=== PATIENT | male | born 1985 | race Caucasian/White ===

== ENCOUNTER 2018-05-14 11:25 | Emergency (ER) | payer SELFPAY ==
[2018-05-14 12:03] LABS: ABSOLUTE LYMPHOCYTES (AUTO) 1.5 10^3/uL (0.5-4.7); ABSOLUTE MONOCYTES (AUTO) 0.7 10^3/uL (0.1-1.4); ABSOLUTE NEUT (AUTO) 8.7 10^3/uL (1.7-8.2); BASOPHILS % (AUTO) 0.3 % (0-2); EOSINOPHILS % (AUTO) 0.4 % (0-6); HEMATOCRIT 43.4 % (37.9-51.0); HEMOGLOBIN 14.6 g/dL (13.5-17.0); LYMPHOCYTES % (AUTO) 13.4 % (13-45); MEAN CORPUSCULAR HEMOGLOBIN 29.4 pg (27.0-33.4); MEAN CORPUSCULAR HGB CONC 33.6 g/dL (32.0-36.0); MEAN CORPUSCULAR VOLUME 88 fl (80-97); MONOCYTES % (AUTO) 6.6 % (3-13); PLATELET COUNT 265 10^3/uL (150-450); RED BLOOD COUNT 4.96 10^6/uL (4.35-5.55); RED CELL DISTRIBUTION WIDTH 16.2 % (11.5-14.0); SEGMENTED NEUTROPHILS % (AUTO) 79.3 % (42-78); TOTAL CELLS COUNTED % (AUTO) 100 %
[2018-05-14 12:08] LABS: APPEARANCE,URINE CLEAR; BILIRUBIN,URINE NEGATIVE (NEGATIVE); COLOR,URINE STRAW; GLUCOSE, URINE NEGATIVE (NEGATIVE); KETONES,URINE NEGATIVE (NEGATIVE); LEUKOCYTE ESTERASE,URINE NEGATIVE (NEGATIVE); NITRITE,URINE NEGATIVE (NEGATIVE); PROTEIN,URINE NEGATIVE (NEGATIVE); URINE SPECIFIC GRAVITY 1.004; UROBILINOGEN,URINE NEGATIVE mg/dL (<2.0)
[2018-05-14 12:24] LABS: URINE AMPHETAMINES SCREEN NEGATIVE; URINE BARBITURATES SCREEN NEGATIVE; URINE BENZODIAZEPINES SCREEN NEGATIVE; URINE COCAINE SCREEN NEGATIVE; URINE MARIJUANA (THC) SCREEN UNCONFIRMED POSITIVE; URINE METHADONE SCREEN NEGATIVE; URINE PHENCYCLIDINE SCREEN NEGATIVE
[2018-05-14 12:25] LABS: ALANINE AMINOTRANSFERASE 46 U/L (21-72); ALBUMIN 4.4 g/dL (3.5-5.0); ALKALINE PHOSPHATASE 93 U/L (38-126); ANION GAP 9 (5-19); ASPARTATE AMINO TRANSFERASE 16 U/L (17-59); BILIRUBIN,DIRECT 0.2 mg/dL (0.0-0.4); BILIRUBIN,TOTAL 0.5 mg/dL (0.2-1.3); BLOOD UREA NITROGEN 9 mg/dL (7-20); CALCIUM 9.9 mg/dL (8.4-10.2); CARBON DIOXIDE 26 mmol/L (22-30); CHLORIDE 107 mmol/L (98-107); GLUCOSE 124 mg/dL (75-110); POTASSIUM 4.3 mmol/L (3.6-5.0); SODIUM 142.3 mmol/L (137-145); TOTAL PROTEIN 7.3 g/dL (6.3-8.2)
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
[2018-05-14 12:32] LABS: ACETAMINOPHEN < 10 ug/mL (10-30); ALCOHOL < 10 mg/dL (NONE DETECTED); SALICYLATE < 1.0 mg/dL (2.0-20.0)
--- NOTE | 2018-05-14 14:32 | EKG REPORT ---
SEVERITY:- NORMAL ECG - SINUS RHYTHM : Confirmed by: Flaquita German MD 14-May-2018 14:31:02
[2018-05-14] MEDS ORDERED: FAMOTIDINE 20 MG TABLET PO ONE (18:04)
[2018-05-14] MEDS ORDERED: NICOTINE 21 MG/24 HR PATCH.TD24 TD ONE (18:08)
[2018-05-14] MEDS ORDERED: SUCRALFATE 1 GM TABLET PO SCH (18:15)
[2018-05-14] MEDS ORDERED: SUCRALFATE 1 GM TABLET PO ONE (18:15)
[2018-05-14] MEDS ORDERED: LITHIUM CARBONATE 300 MG CAPSULE PO SCH (18:15)
[2018-05-14] MEDS ORDERED: FAMOTIDINE 20 MG TABLET PO SCH (18:15)
[2018-05-14] MEDS ORDERED: PALIPERIDONE 6 MG TAB.ER.24 PO SCH (18:15)
[2018-05-14 18:36] LABS: LITHIUM < 0.2 mEq/L (0.6-1.2)
[2018-05-14] MEDS ORDERED: PALIPERIDONE 6 MG TAB.ER.24 PO ONE (18:45)
[2018-05-14] MEDS: GABAPENTIN 300 MG CAPSULE PO SCH (19:46)
[2018-05-14] MEDS: LITHIUM CARBONATE 300 MG CAPSULE PO SCH (19:47)
[2018-05-14] MEDS: FAMOTIDINE 20 MG TABLET PO SCH (19:47)
[2018-05-15] MEDS: SUCRALFATE 1 GM TABLET PO SCH ×4 (00:32→17:19)
[2018-05-15] MEDS: HYDROXYZINE HCL 10 MG TABLET PO PRN ×2 (01:32→14:47)
[2018-05-15] MEDS: PALIPERIDONE 6 MG TAB.ER.24 PO SCH (07:41)
[2018-05-15] MEDS: GABAPENTIN 300 MG CAPSULE PO SCH ×3 (09:16→17:18)
[2018-05-15] MEDS: LITHIUM CARBONATE 300 MG CAPSULE PO SCH ×2 (09:17→17:19)
[2018-05-15] MEDS: FAMOTIDINE 20 MG TABLET PO SCH ×2 (09:17→17:19)
--- NOTE | 2018-05-15 12:39 | ER Document Report ---
Doctor's Note Notes: 05/15/18 12:37 Rounds: Chart reviewed and patient interviewed. Patient being evaluated for schizophrenia. Recently hospitalized. Not on current medications. [place] level subtherapeutic. Vital signs are all essentially normal. Lab studies were normal with exception of very minimal elevation of the white cell count. No clinical significance. Patient makes perfectly good sense in conversation and remember seeing me in the past. Patient appears to be medically stable for transfer or discharge. Annalee Duran MD
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
[2018-05-16] MEDS: SUCRALFATE 1 GM TABLET PO SCH ×4 (00:15→16:05)
[2018-05-16] MEDS ORDERED: NICOTINE 21 MG/24 HR PATCH.TD24 TD ONE (03:53)
[2018-05-16] MEDS: HYDROXYZINE HCL 10 MG TABLET PO PRN ×2 (04:01→14:12)
[2018-05-16] MEDS: PALIPERIDONE 6 MG TAB.ER.24 PO SCH (08:46)
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
[2018-05-16] MEDS: LITHIUM CARBONATE 300 MG CAPSULE PO SCH (09:13)
[2018-05-16] MEDS: GABAPENTIN 300 MG CAPSULE PO SCH ×3 (09:13→17:23)
[2018-05-16] MEDS: FAMOTIDINE 20 MG TABLET PO SCH ×2 (09:13→17:23)
--- NOTE | 2018-05-16 09:50 | ER Document Report ---
Doctor's Note Notes: 05/16/18 09:48 Rounds: Chart reviewed and patient interviewed. Patient is being treated for psychotic behavior off medications. He is having his lithium medication dose increased. His vital signs have been normal except he had one heart rate recorded of 116. At this time, it is 95. No new lab studies. Most recent lithium level was 0.3 at 1250 yesterday afternoon. Patient is complaining of eye pain secondary to an old injury that required eye surgery. He says that he has been told that the pain is secondary to a retained suture in that eye and that there is no surgical treatment for same. He has been on medications to control his use of narcotics and currently he is prescribed naltrexone, but we do not have that here in this hospital. Patient says ibuprofen does not work for his pain and he is allergic to Tylenol, it causes him to have a headache. Patient appears to be medically stable for transfer or discharge. Annalee Duran MD
[2018-05-16] MEDS ORDERED: LITHIUM CARBONATE 300 MG CAPSULE PO SCH (18:00)
[2018-05-17] MEDS: SUCRALFATE 1 GM TABLET PO SCH ×2 (01:27→10:04)
[2018-05-17] MEDS: HYDROXYZINE HCL 10 MG TABLET PO PRN (01:28)
[2018-05-17] MEDS ORDERED: LITHIUM CARBONATE 300 MG CAPSULE PO SCH (08:00)
--- NOTE | 2018-05-17 09:55 | ER Document Report ---
Doctor's Note Notes: 05/17/18 09:53 Rounds: Chart reviewed and patient interviewed. Patient is here for schizophrenia. Patient's lithium was checked and was found to be sub- therapeutic. His lithium dose was increased. On evaluation today, patient's vital signs are stable. Patient seems to answer questions appropriately. Has no complaints or request. Patient denies any suicidal, homicidal ideations. He denies any visual or auditory hallucinations. [place] level to be rechecked. We will discharge him with a prescription for lithium 300 mg nightly. This will be in addition to his previous lithium prescription. Plan of care discussed with the patient. He is agreeable with obtaining the medication and taking it as directed. Patient appears to be medically stable discharge.
[2018-05-17] MEDS: FAMOTIDINE 20 MG TABLET PO SCH (10:04)
[2018-05-17] MEDS: PALIPERIDONE 6 MG TAB.ER.24 PO SCH (10:04)
[2018-05-17] MEDS: GABAPENTIN 300 MG CAPSULE PO SCH (10:04)
[2018-05-17 11:36] VITALS: BP 139/88
--- NOTE | 2018-05-17 12:27 | PSYCHOLOGICAL NOTE ---
Psych Note - Psych Note Psych Note: Reason for Consult: IVC Clinician notes; this patient has multiple charts [id number], [id number] and this chart [id number] Patient's last name Geoffrey 32-year-old male who presents to the emergency department today on IVC paperwork. IVC paperwork states "respondent is displaying aggressive behavior." Check-in conducted with patient Patient is calm and cooperative. He is been redirectable since increase of lithium. He reports that he plans to go straight to [facility] upon discharge to ensure he receives continued therapeutic care. Medication recommendations per [facility]'s contracted psychiatrist Dr. Martita ZHENG are as follows Continue current medications previously started however increase lithium to 600 mg nightly and 300 mg every morning Diagnosis 296.8 (F31.9)Unspecified Bipolar Disorder by history 304.00 (F11.20) Opioid Use Disorder, Severe, per history Impression\\plan: Patient is recommended for rescind of IVC and is cleared from acute psychiatric services. Patient has been calm, cooperative and redirectable. Patient was discharged from [facility] 6 days ago and is now been at [facility] for 3 days. Patient was unable to get his medications after discharge from [facility] because he had not gotten paid yet. 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 Patient demonstrates forward thinking with setting up outpatient mental health services with [facility]. Patient is not demonstrating any behaviors indicating responding to internal stimuli. Patient denies suicidal and homicidal ideation. He no longer meets IVC criteria per CT GS 122C. Dr. Starks was consulted on the care and management this patient; attending physician is agreement with recommendations and disposition.
== END 2018-05-17 11:35 | disposition home or self-care (01) ==
LOC: ER 11:25
DX: F25.0 Schizoaffective disorder, bipolar type (principal); H57.10 Ocular pain, unspecified eye; S05.90XS Unspecified injury of unspecified eye and orbit, sequela; X58.XXXS Exposure to other specified factors, sequela; Z79.899 Other long term (current) drug therapy; Z88.6 Allergy status to analgesic agent
CPT/HCPCS: 93005; 99285; 36415; 80307 ×4; 80178; 85025; 80053; 81001; 93010; J3490 ×8

== ENCOUNTER 2019-08-31 20:02 | Emergency (ER) | payer SELFPAY ==
[2019-08-31 20:37] LABS: ABSOLUTE BASOPHILS # (AUTO) 0.1 10^3/uL (0.0-0.2); ABSOLUTE EOSINOPHILS # (AUTO) 0.4 10^3/uL (0.0-0.6); ABSOLUTE LYMPHOCYTES (AUTO) 2.4 10^3/uL (0.5-4.7); ABSOLUTE MONOCYTES (AUTO) 1.2 10^3/uL (0.1-1.4); ABSOLUTE NEUT (AUTO) 8.4 10^3/uL (1.7-8.2); BASOPHILS % (AUTO) 0.5 % (0-2); EOSINOPHILS % (AUTO) 2.9 % (0-6); HEMATOCRIT 45.1 % (37.9-51.0); LYMPHOCYTES % (AUTO) 19.6 % (13-45); MEAN CORPUSCULAR HEMOGLOBIN 29.4 pg (27.0-33.4); MEAN CORPUSCULAR HGB CONC 33.2 g/dL (32.0-36.0); MEAN CORPUSCULAR VOLUME 89 fl (80-97); MONOCYTES % (AUTO) 9.7 % (3-13); PLATELET COUNT 286 10^3/uL (150-450); RED BLOOD COUNT 5.09 10^6/uL (4.35-5.55); RED CELL DISTRIBUTION WIDTH 15.9 % (11.5-14.0); SEGMENTED NEUTROPHILS % (AUTO) 67.3 % (42-78); TOTAL CELLS COUNTED % (AUTO) 100 %; WHITE BLOOD COUNT 12.5 10^3/uL (4.0-10.5)
--- NOTE | 2019-08-31 20:56 | EKG REPORT ---
SEVERITY:- ABNORMAL ECG - SINUS TACHYCARDIA ST ELEVATION SUGGESTS PERICARDITIS : Confirmed by: Sarthak Castelan 31-Aug-2019 20:55:27
[2019-08-31] MEDS ORDERED: HALOPERIDOL 5 MG TABLET PO ONE (21:11)
[2019-08-31] MEDS ORDERED: HYDROXYZINE PAMOATE 50 MG CAPSULE PO ONE (21:12)
[2019-08-31 21:13] LABS: APPEARANCE,URINE CLEAR; BILIRUBIN,URINE NEGATIVE (NEGATIVE); COLOR,URINE YELLOW; GLUCOSE, URINE NEGATIVE (NEGATIVE); KETONES,URINE NEGATIVE (NEGATIVE); LEUKOCYTE ESTERASE,URINE NEGATIVE (NEGATIVE); NITRITE,URINE NEGATIVE (NEGATIVE); PROTEIN,URINE NEGATIVE (NEGATIVE); URINE SPECIFIC GRAVITY 1.019; UROBILINOGEN,URINE NEGATIVE mg/dL (<2.0)
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
[2019-08-31 21:26] LABS: URINE AMPHETAMINES SCREEN NEGATIVE; URINE BARBITURATES SCREEN NEGATIVE; URINE BENZODIAZEPINES SCREEN NEGATIVE; URINE COCAINE SCREEN NEGATIVE; URINE METHADONE SCREEN NEGATIVE; URINE PHENCYCLIDINE SCREEN NEGATIVE
[2019-08-31 21:26] LABS: ALBUMIN 4.2 g/dL (3.5-5.0); ALKALINE PHOSPHATASE 198 U/L (38-126); ANION GAP 8 (5-19); ASPARTATE AMINO TRANSFERASE 468 U/L (17-59); BILIRUBIN,DIRECT 0.3 mg/dL (0.0-0.4); BILIRUBIN,TOTAL 0.6 mg/dL (0.2-1.3); BLOOD UREA NITROGEN 29 mg/dL (7-20); CALCIUM 9.8 mg/dL (8.4-10.2); CARBON DIOXIDE 28 mmol/L (22-30); CHLORIDE 101 mmol/L (98-107); GLUCOSE 133 mg/dL (75-110); POTASSIUM 4.4 mmol/L (3.6-5.0); TOTAL PROTEIN 7.2 g/dL (6.3-8.2)
[2019-08-31 21:28] LABS: URINE MARIJUANA (THC) SCREEN UNCONFIRMED POSITIVE
[2019-08-31 21:49] LABS: ACETAMINOPHEN < 10 ug/mL (10-30); ALCOHOL < 10 mg/dL (NONE DETECTED); SALICYLATE < 1.0 mg/dL (2.0-20.0)
[2019-08-31] MEDS ORDERED: DIPHENHYDRAMINE HCL 50 MG/ML VIAL IM ONE (21:51)
[2019-08-31] MEDS ORDERED: HALOPERIDOL LACTATE INJ 5 MG/1 ML VIAL IM ONE (21:51)
[2019-08-31] MEDS ORDERED: LORAZEPAM INJ 2 MG/1 ML VIAL IM ONE (21:51)
[2019-08-31] MEDS ORDERED: HALOPERIDOL LACTATE INJ 5 MG/1 ML VIAL ONE (21:52)
[2019-08-31] MEDS ORDERED: HYDROXYZINE HCL INJ 50 MG/1 ML VIAL ONE (21:52)
--- NOTE | 2019-09-01 09:51 | RADIOLOGY REPORT (SQ) ---
EXAM DESCRIPTION: U/S ABDOMEN COMPLETE W/DOPPLER COMPLETED DATE/TIME: 09/01/2019 9:36 am REASON FOR STUDY: significantly elevated LFTs COMPARISON: None. TECHNIQUE: Dynamic and static grayscale images acquired of the abdomen and recorded on PACS. Additio nal selected color Doppler and spectral images recorded. Note: Study does not meet criteria for complete doppler/duplex scan LIMITATIONS: None. FINDINGS: PANCREAS: No masses. Visualized pancreatic duct normal caliber. LIVER: No masses. Echotexture normal. LIVER VASCULATURE: Normal directional flow of the main portal vein and hepatic veins. GALLBLADDER: No stones. Normal wall thickness. No pericholecystic fluid. ULTRASOUND-DETECTED HAWK'S SIGN: Negative. INTRAHEPATIC DUCTS AND COMMON DUCT: CBD and intrahepatic ducts normal caliber. No filling defects. INFERIOR VENA CAVA: Normal flow. AORTA: No aneurysm. RIGHT KIDNEY:Normal size. Normal echogenicity. No solid or suspicious masses. No hydronephrosis. No c alcifications. LEFT KIDNEY: Normal size. Normal echogenicity. No solid or suspicious masses. No hydronephrosis. No calcifications. SPLEEN: Normal size. No solid masses. PERITONEAL AND PLEURAL SPACES: No ascites or effusions. OTHER: No other significant finding. IMPRESSION: NORMAL ABDOMINAL ULTRASOUND. TECHNICAL DOCUMENTATION: JOB ID: [id number] [employer]- All Rights Reserved Reading location - IP/workstation name: [email or web address]
--- NOTE | 2019-09-01 16:00 | PSYCHOLOGICAL NOTE ---
Psych Note - Psych Note Date seen by psych provider: 09/01/19 Time seen by psych provider: 09:55 - 1st attempt Psych Note: Reason for Consult: IVC Patient is a 33-year-old male with a history of schizophrenia that comes to the emergency department for chief complaint of abnormal behavior and dangerous behavior. Patient presented to [facility] ED via [facility] under IVC petitioned by the patient's mother. Patient reports that his house is normally kept very clean however is adamant that he is not been the one to make messes stating that the "Supai eye" in his ceiling records everything and that he refuses to watch more than 2 minutes of past recordings because he knows it is not him making the masses so just the leads it. He reports frustration that everyone else in the house makes messes so he stopped cleaning up after them. He continued to report that his mother has many books and has a bachelors however he has been reading them and been doing research. Patient is asked about missing window in which he reports that his mother took the keys so he had to remove the window so he could get into the house. He reports that it is easily put back in. When asked about why he was hitting the mailbox he states that he was hitting a mailbox so he did not hit his brother because he was angry at his brother. He then states that his brother smells "like pee." Patient reports he has been working a lot and denies shooting up anything in 4 months. He states he has not used Suboxone or methadone in 6 months and feels that his family has never seen him sober so "are freaked out." He reports that his mind is never been clear and "open to different thoughts." Patient then stated that he thought about throwing yogurt to the wall when asked why he stated that it is because his mother is "yeasty." Patient states that anytime she is in the family home he walks in and it smells like "bread." Impression/Plan: Patient is recommended for continued IVC for mental health observation. Patient is able to engage organized and linear conversation then has bouts of illogical comments that are bizarre and demonstrates flight of thought. There is concern the patient may be under the influence of kratom and having psychotic episodes from his kratom use. Patient admits to using kratom. Patient will be re-evaluated. Dr. Starks was consulted on the care and management of this patient; attending physician is in agreement with recommendations and disposition.
[2019-09-01] MEDS ORDERED: HALOPERIDOL 5 MG TABLET PO ONE (16:47)
--- NOTE | 2019-09-01 16:48 | ER Document Report ---
Doctor's Note Notes: 09/01/19 16:47 Pt's LFTs elevated. US abdomen ordered earlier which was negative. Psychiatrist is uncomfortable giving medication recommendations due to elevated liver enzymes. Discussed with attending, Dr. Fernando Aviles, who recommended Haldol due to agitation and repeating LFT and adding on ammonia. 09/01/19 16:55 discussed elevated liver enzymes with patient. Patient denies alcohol abuse, abdominal pain, nausea/vomiting. Patient denies any history of liver failure. Patient is mildly agitated and Haldol was ordered. Patient also offered nicotine patch but refusing at this time. Patient is alert and oriented without any signs of altered mental status. Patient nontoxic, well-appearing. 09/01/19 18:35 Pt's repeat LFT are stable. Discussed with attending, Dr. Fernando Aviles. If pt is to be discharged tomorrow then he may go with outpatient follow up for elevated LFTs.
[2019-09-01 18:10] LABS: ALBUMIN 3.9 g/dL (3.5-5.0); ALKALINE PHOSPHATASE 155 U/L (38-126); ASPARTATE AMINO TRANSFERASE 442 U/L (17-59); BILIRUBIN,DIRECT 0.2 mg/dL (0.0-0.4); BILIRUBIN,TOTAL 0.7 mg/dL (0.2-1.3); TOTAL PROTEIN 6.8 g/dL (6.3-8.2)
[2019-09-02] MEDS ORDERED: OLANZAPINE INJ/PF 10 MG SDV IM ONE (06:39)
--- NOTE | 2019-09-02 06:41 | ER Document Report ---
Doctor's Note Notes: 09/02/19 06:40 I was back near this patient's room, to see another patient. The patient was standing threateningly in the room, avoiding redirection. He was pacing the hallways, aggressively interacting with staff. He was continually getting hand title attorney from the dispenser in the hallway, rubbing it on his face. I was then in another patient's room, with the door shut, I could hear him sounding more agitated. The patient at this time is not responding to redirection, and I do believe that pharmacological intervention is necessary. I ordered Zyprexa 5 mg IM in an attempt to calm the patient.
[2019-09-02 07:37] LABS: HEPATITS B SURFACE ANTIGEN Negative (Negative)
[2019-09-02] MEDS ORDERED: CHLORPROMAZINE HCL INJ 25 MG/1 ML AMPULE IM ONE (14:34)
[2019-09-02] MEDS ORDERED: BENZTROPINE MESYLATE INJ 2 MG/2 ML AMPULE IM ONE (14:34)
--- NOTE | 2019-09-02 14:44 | PSYCHOLOGICAL NOTE ---
Psych Note - Psych Note Date seen by psych provider: 09/02/19 Time seen by psych provider: 11:00 Psych Note: Reason for Consult: IVC Patient is a 33-year-old male with a history of schizophrenia that comes to the emergency department for chief complaint of abnormal behavior and dangerous behavior. Patient [facility] to [facility] via [facility] under IVC petitioned by the patient's mother. Check in Conducted with patient: Patient continues to act manic with being unable to control psychomotor agitation and flight of thought. Patient at times has slightly pressured speech however overall patient is able to be understood. Patient does attempt in speaking in multiple languages using common phrases from different languages such as counting in Hungarian, saying hello how are you in American, and then saying hello how are you in Kazakh. Patient continues to make bizarre statements and illogical jumps in conversation. Medication recommendations per [facility]'s contracted psychiatrist Dr. Martita ZHENG are as follows Thorazine 100 mg IM once Cogentin 1 mg IM once Impression/Plan: Patient is recommended for continued IVC for mental health observation. Patient is able to engage organized and linear conversation then has bouts of illogical comments that are bizarre and demonstrates flight of thought. There is concern the patient may be having a psychotic episodes from his kratom use. Patient admits to using kratom. Patient will be re-evaluated. Dr. Starks was consulted on the care and management of this patient; attending physician is in agreement with recommendations and disposition.
--- NOTE | 2019-09-02 15:09 | ER Document Report ---
Doctor's Note Notes: 09/02/19 15:07 Pt is mildly agitated. Pt continues to remain IVC per psych recommendations. One time dose of medications ordered for agitation per psych recommendations. Pt states he is frustrated with still being in ER. Pt is nontoxic, well appearing. Discussed elevated LFTs and need for outpatient follow up with GI once d/c. Pt voices understanding.
[2019-09-02] MEDS ORDERED: HALOPERIDOL LACTATE INJ 5 MG/1 ML VIAL IM ONE (16:40)
[2019-09-02] MEDS ORDERED: LORAZEPAM INJ 2 MG/1 ML VIAL IM ONE (17:17)
[2019-09-03 07:12] LABS: HEPATITIS C VIRUS ANTIBODY >11.0 s/co ratio (0.0-0.9)
--- NOTE | 2019-09-03 08:10 | PSYCHOLOGICAL NOTE ---
Psych Note - Psych Note Date seen by psych provider: 09/03/19 Time seen by psych provider: 07:45 Psych Note: Reason for Consult: IVC Patient is a 33-year-old male with a history of schizophrenia that comes to the emergency department for chief complaint of abnormal behavior and dangerous behavior. Patient presented to [facility] ED via [facility] under IVC petitioned by the patient's mother. Patient is known to clinician and behavioral health team. Check in Conducted with patient: Patient continues to act manic with being unable to control psychomotor agitation and flight of thought. Patient at times has slightly pressured speech however overall patient is able to be understood. Patient states his "Serotonin levels are through the roof because he is happy." Patient states the reason he is in the ED is because of his mother. Patient states he was "mad" because his mom continues to smoke cigarettes around his nephew. Patient states he removed the "roaches and mom" from the home. Patient then stated his mom's room is "yeasty" and his nephew's room has "tar" from the cigarette smoke. Patient continues, he "doesn't really know" because he has been sleeping on the porch since . Patient states his mother has a yeast infection. 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 Patient stated he "ain't shot up in a long time." Patient admits to Kratom "sprinkles" use (1 capsule 3 days ago). Clinician provided education that Kratom can have adverse effects on mental health. Patient states he was aware so he used miso soup "to test it." Patient stated the chemical reactions and testing procedure were too complex for this clinician to understand. Clinician notes scrapes and cuts on both of patient's hands. Patient states he was "hunting with his dog (a blue pit)" the cuts were from "lazaro in the [place]." Clinician observes patient is anxious and frequently paces his room and uses the restroom as an excuse to leave his room. Clinician reminded patient of the need for him to remain in his room because there are other patient's health information being discussed throughout the pendleton. Patient expressed feelings of anxiety and claustrophobia. Clinician empathized and reiterated the need for him to stay in his room. Updated 10:00- Patient is becoming more behavioral (argumentative and loud) and not as easily redirectable. Patient expressed a belief he is being held here against his will. Clinician discussed the IVC concerns. Patient denied IVC concerns. Patient replied, "it's not against the law to beat your own mailbox with a baseball bat." Clinician responded that semantics will not be argued. Clinician encouraged patient to meditate for enlightenment. Patient refused. Clinician restated the need for patient to remain in his room. Nurses/Security requesting restraints. Patient is not being violent, at this time. Clinician discussed his role in remaining out of the restraints. Patient states, "I like to be tied down." Medication recommendations per [facility] contracted psychiatrist Dr. Martita ZHENG is as follows: NO BENADRYL Add Gabapentin 400MG, three times a day Add Risperdal 1MG, twice a day Add Ativan 1MG, every six hours as needed Add Clonidine 0.1MG, twice a day Add Trazodone 100MG, at bedtime Impression/Plan: Patient is recommended for continued IVC for mental health observation. Mediation recommendations have been provided. Patient's status remains unchanged. Patient denies suicidal and homicidal ideations. Patient is able to engage organized and linear conversation then has bouts of illogical comments that are bizarre and demonstrates flight of thought. There is concern the patient may be having a psychotic episodes from his kratom use. Patient admits to using kratom. Dr. Starks was consulted on the care and management of this patient; attending physician is in agreement with recommendations and disposition.
[2019-09-03] MEDS ORDERED: CHLORPROMAZINE HCL INJ 25 MG/1 ML AMPULE IM ONE ×2 (09:45→19:37)
[2019-09-03] MEDS ORDERED: BENZTROPINE MESYLATE INJ 2 MG/2 ML AMPULE IM ONE (09:46)
--- NOTE | 2019-09-03 09:53 | ER Document Report ---
Doctor's Note Notes: 09/03/19 09:48 I evaluated the patient. Patient is agitated at this time. I reviewed the recommendations from the psychiatric staff who evaluated the patient. Patient has been coming out of his room this morning states that he is a pill popper and enjoys taking large amounts of narcotics and also Thorazine. I did discuss the recommendations for medications as he is somewhat agitated at this time. They have recommended Thorazine 100 mg IM and Cogentin IM. Patient states he would not like to take the Cogentin but is willing to take the Thorazine. Patient is noted to be hepatitis C positive. He is IVC'd 09/03/19 09:53 09/03/19 09:56
[2019-09-03] MEDS: GABAPENTIN 400 MG CAPSULE PO SCH ×2 (14:46→18:18)
[2019-09-03] MEDS: LORAZEPAM 1 MG TABLET PO PRN (18:17)
[2019-09-03] MEDS: RISPERIDONE 1 MG TABLET PO SCH (18:17)
[2019-09-03] MEDS: CLONIDINE HCL 0.1 MG TABLET PO SCH (18:18)
--- NOTE | 2019-09-03 19:40 | ER Document Report ---
Doctor's Note Notes: 09/03/19 19:39 Patient is becoming more agitated requiring more frequent redirection. Will give dose of Thorazine, patient has received his other medications today, will start at 50 mg IM
[2019-09-03] MEDS: TRAZODONE HCL 50 MG TABLET PO SCH (21:30)
[2019-09-04] MEDS: LORAZEPAM 1 MG TABLET PO PRN ×4 (01:10→20:59)
[2019-09-04] MEDS: RISPERIDONE 1 MG TABLET PO SCH ×2 (09:19→17:33)
[2019-09-04] MEDS: CLONIDINE HCL 0.1 MG TABLET PO SCH ×2 (09:19→17:33)
[2019-09-04] MEDS: GABAPENTIN 400 MG CAPSULE PO SCH ×3 (09:19→17:33)
--- NOTE | 2019-09-04 10:22 | ER Document Report ---
Doctor's Note Notes: 09/04/19 10:20 Patient is sleeping at this time does not appear to be in any distress. Patient apparently had to be medicated overnight with benzodiazepines for aggressive behavior. I spoken with the psychiatric team. They are not planning on discharge at this time they do not have placement yet for the patient. Patient will likely need continued medication treatment given his continuing agitation, wandering behavior and manic behavior
[2019-09-04] MEDS ORDERED: NICOTINE 21 MG/24 HR PATCH.TD24 TD ONE (15:33)
--- NOTE | 2019-09-04 18:38 | PSYCHOLOGICAL NOTE ---
Psych Note - Psych Note Date seen by psych provider: 09/04/19 Time seen by psych provider: 08:30 Psych Note: Patient is a 33-year-old male with a history of schizophrenia that comes to the emergency department for chief complaint of abnormal behavior and dangerous beha vior. Patient presented to [facility] via [facility] under IVC petitioned by the patient's mother. Patient is known to clinician and behavioral health team. Check in Conducted with patient: Patient continues to act manic with being unable to control psychomotor agitation and flight of thought. Patient at times has slightly pressured speech however overall patient is able to be understood. 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 Patient states he "knows I'm not a Schzophrenic" because of his musical ability. Patient continues to demand discharge. Clinician informed patient "we had to m ibrahima sure the Kratom was out of his system" so he needs to be reevaluated. Patient states he knows he was not psychotic due to Kratom use because "I put sprinkles [of Kratom] in miso soup." Patient attempted to deflect conversation to his mother, clinician replied, "I'm not concerned with your mother I am concerned about you." Clinician observed some frustration in patient. Medication recommendations per [facility] contracted psychiatrist Dr. Martita ZHENG is as follows: NO BENADRYL Add Gabapentin 400MG, three times a day Add Risperdal 1MG, twice a day Add Ativan 1MG, every six hours as needed Add Clonidine 0.1MG, twice a day Add Trazodone 100MG, at bedtime Impression/Plan: Patient is recommended for continued IVC for mental health observation. Mediation recommendations have been provided. Patient's status remains unchanged. Patient denies suicidal and homicidal ideations. Patient is able to engage organized and linear conversation then has bouts of illogical comments that are bizarre and demonstrates flight of thought. There is concern the patient may be having a psychotic episodes from his kratom use. Patient admits to using kratom. Dr. Starks was consulted on the care and management of this patient; attending physician is in agreement with recommendations and disposition.
[2019-09-04] MEDS: TRAZODONE HCL 50 MG TABLET PO SCH (20:59)
[2019-09-05] MEDS: LORAZEPAM 1 MG TABLET PO PRN ×2 (04:44→09:00)
[2019-09-05] MEDS: CLONIDINE HCL 0.1 MG TABLET PO SCH (09:00)
[2019-09-05] MEDS: RISPERIDONE 1 MG TABLET PO SCH (09:00)
[2019-09-05] MEDS: GABAPENTIN 400 MG CAPSULE PO SCH ×2 (09:00→14:13)
--- NOTE | 2019-09-05 14:02 | ER Document Report ---
Doctor's Note Notes: 09/05/19 14:00 Chart reviewed patient rounded on. Patient is calm waiting in his room. Reports that he is just ready to be discharged. Denies suicidal or homicidal ideations. 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 He reports he quit recording because his mom was listening to him on her phone. Re ports he plays all kinds of instruments. Patient is also asking question about hep C. Denies complaints at this time PHYSICAL EXAMINATION: GENERAL: Well-appearing and in no acute distress HEAD: Atraumatic, normocephalic. EYES: extraocular movements intact, sclera anicteric, conjunctiva are normal. ENT: nares patent, Moist mucous membranes. NECK: Normal range of motion, supple without lymphadenopathy LUNGS: CTAB and equal. No wheezes rales or rhonchi. HEART: Regular rate and rhythm without murmurs ABDOMEN: Soft, no tenderness. No guarding, no rebound EXTREMITIES: Normal range of motion, NEUROLOGICAL: Cranial nerves grossly intact. Normal sensory/motor exams. PSYCH: Normal mood, normal affect. SKIN: Warm, Dry, normal turgor, no rashes or lesions noted Patient discharged home with recommendations from behavioral health. Patient denies suicidal or homicidal ideations. Patient is calm.
[2019-09-05 14:22] VITALS: BP 139/76
--- NOTE | 2019-09-06 14:33 | PSYCHOLOGICAL NOTE ---
Psych Note - Psych Note Date seen by psych provider: 09/05/19 Time seen by psych provider: 10:22 Psych Note: Reason for Consult: IVC Patient is a 33-year-old male with a history of schizophrenia that comes to the emergency department for chief complaint of abnormal behavior and dangerous behavior. Patient presented to [facility] ED via [facility] under IVC petitioned by the patient's mother. Check in Conducted with patient: Patient is able to engage appropriately in conversation. He reports that this is the first time he is felt good on medications. He reports that he plans to continue take these medications and requests the medications be forwarded to [email or web address] so he can pick them up after he is discharged. Patient engaged in a conversation in regards to his of medicinal herbs and the concerns that it has resulted in patient's original manic presentation. Medication recommendations per [facility]'s contracted psychiatrist Dr. Martita ZHENG are as follows Please NO BENADRYL Gabapentin 400MG, three times a day Risperdal 1MG, twice a day Ativan 1MG, every six hours as needed Clonidine 0.1MG, twice a day Trazodone 100MG, at bedtime Impression/Plan: Patient is recommended for rescind of IVC and is cleared from acute psychiatric services. Patient is no longer demonstrating manic behaviors. Patient has normal conversational speech tone and prosody, maintains good eye contact, and is able to engage in organized and linear discussions. Patient admits to using medicinal herbs as a supplement to his marijuana and was able to engage effectively on the concerns this caused his original manic presentation. Patient states that he feels much better on the current medications and confirms he would like to continue this medication regiment. Patient is recommended to follow-up with outpatient mental health services for medication management and substance abuse treatment. Dr. Starks was consulted on the care and management of this patient; attending physician is in agreement with recommendations and disposition.
[2019-09-06 20:36] LABS: HEPATITIS C QUANTITATION 515000 IU/mL (.)
[2019-09-07 07:08] LABS: HEPATITIS C LOG10 5.712 (.)
== END 2019-09-05 14:29 | disposition home or self-care (01) ==
LOC: ER 20:02
DX: Z04.6 Encounter for general psychiatric examination, requested by authority (principal); F20.9 Schizophrenia, unspecified; B19.20 Unspecified viral hepatitis C without hepatic coma; R45.6 Violent behavior; S61.412A Laceration without foreign body of left hand, initial encounter; S61.411A Laceration without foreign body of right hand, initial encounter; S61.512A Laceration without foreign body of left wrist, initial encounter; S61.511A Laceration without foreign body of right wrist, initial encounter; X58.XXXA Exposure to other specified factors, initial encounter; Y93.89 Activity, other specified; Y92.821 Forest as the place of occurrence of the external cause; F12.10 Cannabis abuse, uncomplicated; F17.290 Nicotine dependence, other tobacco product, uncomplicated; Z88.8 Allergy status to other drugs, medicaments and biological substances; Z88.0 Allergy status to penicillin
CPT/HCPCS: 93005; 99285; 96372; 36415; 80307 ×4; 82140; 83690; 85025; 80076; 80053; 81001; 87522; 80074; 93010; J0515 ×2; J3230 ×2; J1630 ×2; J3410; J2060 ×2

== ENCOUNTER 2019-09-11 13:02 | Emergency (ER) | payer SELFPAY ==
[2019-09-11 13:20] VITALS: BP 154/86
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
[2019-09-11 15:11] LABS: APPEARANCE,URINE CLEAR; BILIRUBIN,URINE NEGATIVE (NEGATIVE); COLOR,URINE YELLOW; GLUCOSE, URINE NEGATIVE (NEGATIVE); KETONES,URINE NEGATIVE (NEGATIVE); LEUKOCYTE ESTERASE,URINE NEGATIVE (NEGATIVE); NITRITE,URINE NEGATIVE (NEGATIVE); PROTEIN,URINE NEGATIVE (NEGATIVE); URINE SPECIFIC GRAVITY 1.016; UROBILINOGEN,URINE NEGATIVE mg/dL (<2.0)
--- NOTE | 2019-09-11 15:12 | RADIOLOGY REPORT (SQ) ---
EXAM DESCRIPTION: CT ABD/PELVIS NO ORAL OR IV COMPLETED DATE/TIME: 09/11/2019 1:51 pm REASON FOR STUDY: poss kidney stone right flank pain. COMPARISON: 07/29/2019. TECHNIQUE: CT scan of the abdomen and pelvis performed without intravenous or oral contrast. Images reviewed with lung, soft tissue, and bone windows. Reconstructed coronal and sagittal MPR images revi ewed. All images stored on PACS. All CT scanners at this facility use dose modulation, iterative reconstruction, and/or weight based d osing when appropriate to reduce radiation dose to as low as reasonably achievable (ALARA). [facility]: Dose Right [facility]: CareDose [facility]: Dose Right [facility]: Teradose 4D [facility]: Smart BigFix RADIATION DOSE: CT Rad equipment meets quality standard of care and radiation dose reduction techniq ues were employed. CTDIvol: 5.1 mGy. DLP: 275 mGy-cm.mGy. LIMITATIONS: None. FINDINGS: LOWER CHEST: No significant findings. No nodules or infiltrates. NON-CONTRASTED LIVER, SPLEEN, ADRENALS: Evaluation limited by lack of IV contrast. No identified sign ificant masses. PANCREAS: No masses. No peripancreatic inflammatory changes. GALLBLADDER: Contracted. No identified stones. No inflammatory change. RIGHT KIDNEY AND URETER: No suspicious masses. Assessment limited by lack of IV contrast. Multiple punctate nonobstructing renal calculi. No hydronephrosis or hydroureter. LEFT KIDNEY AND URETER: No suspicious masses. Assessment limited by lack of IV contrast. Multiple p unctate nonobstructing renal calculi. No hydronephrosis or hydroureter. AORTA AND RETROPERITONEUM: No aneurysm. No retroperitoneal masses or adenopathy. BOWEL AND PERITONEAL CAVITY: No obvious masses or inflammatory changes. No free fluid. APPENDIX: Normal. PELVIS, BLADDER, AND ABDOMINAL WALL:No abnormal masses. No free fluid. Bladder normal. BONES: No significant findings. OTHER: No other significant finding. IMPRESSION: 1. Multiple bilateral nonobstructing renal calculi. No obstructing renal or ureteral calculus. No h ydronephrosis. 2. Appendix is normal. COMMENT: Quality ID # [id number]: Final reports with documentation of one or more dose reduction techniques (e.g., Automated exposure control, adjustment of the mA and/or kV according to patient size, use of iterative reconstruction technique) TECHNICAL DOCUMENTATION: JOB ID: [id number] [employer]- All Rights Reserved Reading location - IP/workstation name: [id number]
== END 2019-09-11 15:52 | disposition home or self-care (01) ==
LOC: ER 13:02
DX: S60.511A Abrasion of right hand, initial encounter (principal); S60.221A Contusion of right hand, initial encounter; R31.9 Hematuria, unspecified; R10.9 Unspecified abdominal pain; F19.10 Other psychoactive substance abuse, uncomplicated; F20.9 Schizophrenia, unspecified; R30.0 Dysuria; Y04.8XXA Assault by other bodily force, initial encounter; F17.200 Nicotine dependence, unspecified, uncomplicated
CPT/HCPCS: 36415; 74176; 81001; 86701; 99284

== ENCOUNTER 2020-09-07 01:08 | Emergency (ER) | payer SELFPAY ==
[2020-09-07] MEDS ORDERED: DOXYCYCLINE HYCLATE 100 MG TABLET PO ONE (06:31)
[2020-09-07 06:44] VITALS: BP 131/88
--- NOTE | 2020-09-07 14:08 | ER Document Report ---
Entered by JAYLA MCNEIL SCRIBE 09/07/20 0615 Acting as scribe for:JOCELYNE CHRISTENSEN MD ED General - General Chief Complaint: Medical Complaint Stated Complaint: VOMITING BLOOD Time Seen by Provider: 09/07/20 06:11 Primary Care Provider: [facility] [Provider Group] - Follow up as needed Mode of Arrival: Ambulatory Information source: Patient Notes: This 34 year old male patient presents to the ED today with complaints of an episode of hemoptysis that occurred around 0100 this morning. From the picture the patient presented, it looks like whitish/yellowish phlegm with traces of blood in it. He denies any other episodes, stating that he has been spitting it on the ground. Denies any other complaints. TRAVEL OUTSIDE OF THE [place] IN LAST 30 DAYS: No - Related Data Allergies/Adverse Reactions: acetaminophen Allergy (Verified 09/03/19 11:45) citalopram [From Celexa] Allergy (Verified 09/03/19 11:45) citalopram hydrobromide [From Celexa] Allergy (Verified 09/03/19 11:45) "skin gets real hot" Penicillins Allergy (Verified 09/03/19 11:45) Past Medical History - General Information source: Patient, [facility] - Social History Smoking Status: Current Every Day Smoker Cigarette use (# per day): Yes - 2 ppd Chew tobacco use (# tins/day): No Smoking Education Provided: No Frequency of alcohol use: Rare Drug Abuse: Marijuana Family History: Reviewed & Not Pertinent Patient has homicidal ideation: No Renal/ Medical History: Reports: Hx Kidney Stones GI Medical History: Reports: Hx Hepatitis - C Musculoskeletal Medical History: Reports Hx Musculoskeletal Deformity Psychiatric Medical History: Reports: Hx Anxiety, Hx Attention Deficit Hyperactivity Disorder, Hx Bipolar Disorder, Hx Depression, Hx Schizophrenia Infectious Medical History: Reports: Hx Hepatitis - C Past Surgical History: Reports: Other - Left eye surgery for trauma. - Immunizations Hx Diphtheria, Pertussis, Tetanus Vaccination: Yes Review of Systems - Review of Systems Constitutional: No symptoms reported EENT: No symptoms reported Cardiovascular: No symptoms reported Respiratory: See HPI, Hemoptysis Gastrointestinal: No symptoms reported Genitourinary: No symptoms reported Male Genitourinary: No symptoms reported Musculoskeletal: No symptoms reported Skin: No symptoms reported Hematologic/Lymphatic: No symptoms reported Neurological/Psychological: No symptoms reported -: Yes All other systems reviewed and negative Physical Exam - Vital signs Vitals: Temp Pulse Resp BP Pulse Ox 98.0 F 90 18 143/99 H 96 09/07/20 01:14 09/07/20 01:14 09/07/20 01:14 09/07/20 01:14 09/07/20 01:14 - General General appearance: Alert In distress: None - HEENT Head: Normocephalic, Atraumatic Eyes: Normal Extraocular movements intact: Yes Pupils: PERRL Mouth/Lips: Other - There is some dental decay, but no gingival bleeding. Neck: Normal, Supple - Respiratory Respiratory status: No respiratory distress Chest status: Nontender Breath sounds: Rhonchi - when he coughs. No: Productive cough, Wheezing Chest palpation: Normal - Cardiovascular Rhythm: Regular Heart sounds: Normal auscultation Murmur: No - Abdominal Inspection: Normal Distension: No distension Bowel sounds: Normal Tenderness: Nontender - Abdomen soft Organomegaly: No organomegaly - Back Back: Normal, Nontender - Extremities General upper extremity: Normal inspection General lower extremity: Normal inspection. No: Edema - Neurological Neuro grossly intact: Yes Orientation: AAOx4 Demetria Coma Scale Eye Opening: Spontaneous [place] Coma Scale Verbal: Oriented [place] Coma Scale Motor: Obeys Commands Demetria Coma Scale Total: 15 - Psychological Associated symptoms: Normal affect, Normal mood - Skin Skin Temperature: Warm Skin Moisture: Dry Skin Color: Normal Course - Vital Signs Vital signs: Temp Pulse Resp BP Pulse Ox 97.9 F 59 L 15 131/88 H 98 09/07/20 06:43 09/07/20 06:43 09/07/20 06:43 09/07/20 06:43 09/07/20 06:43 - Laboratory Results Critical Laboratory Results Reviewed: No Critical Results - Radiology Results Critical Radiology Results Reviewed: No Critical Results Discharge - Discharge Clinical Impression: Bronchitis, Hemoptysis Condition: Stable Disposition: HOME, SELF-CARE Additional Instructions: Bronchitis You have acute bronchitis. This disease is an infection or inflammation of the air passageways in your lungs. Symptoms usually include cough, low grade fever, shortness of breath, and wheezing. The cough usually persists for a couple of weeks. Most cases of bronchitis get better without antibiotics. We prescribe antibiotics when we believe bacteria are damaging your airways, or if there's high risk the bronchitis will worsen into pneumonia. Increase your fluid intake. A cool mist humidifier may make your lungs more comfortable. An expectorant (cough medicine that loosens phlegm) can help. If you smoke, STOP!!! Recovery from bronchitis can be somewhat slow, but you should see improvement within a day or two. Repeated episodes of bronchitis may result in lung damage -- for example, chronic bronchitis, recurrent pneumonias, or emphysema. Call the doctor if you develop increasing fever, shortness of breath, chest pain, bloody sputum, or otherwise worsen. If you have not improved at all after several days, contact the physician. Hemoptysis Hemoptysis (coughing up blood) can occur with many different diseases. Most commonly, it's due to an infection such as bronchitis. Although alarming, the presence of blood in the phlegm doesn't change the treatment of bronchitis or pneumonia. The physician has evaluated you to see if there is evidence of an underlying problem requiring further evaluation. If he has recommended further tests, you should follow up as instructed. Hemoptysis without an identifiable cause can be due to tumors or hidden infections. Return for a recheck if the blood increases greatly in amount, or if you develop shortness of breath, high fever, severe chest pain, or other alarming new symptoms. Take medications as prescribed. Drink plenty fluids get plenty rest. Try to reduce the amount of smoking you are doing. Follow-up with a local primary care provider or the [facility] for recheck if you do not improve on the doxycycline antibiotic that was prescribed. RETURN TO THE EMERGENCY ROOM IF ANY NEW OR WORSENING SYMPTOMS. Prescriptions: Doxycycline Hyclate 100 mg PO BID #20 tablet. Referrals: [facility] [Provider Group] - Follow up as needed I personally performed the services described in the documentation, reviewed and edited the documentation which was dictated to the scribe in my presence, and it accurately records my words and actions.
== END 2020-09-07 06:43 | disposition home or self-care (01) ==
LOC: ER 01:08
DX: R04.2 Hemoptysis (principal); J40 Bronchitis, not specified as acute or chronic; F17.210 Nicotine dependence, cigarettes, uncomplicated; F12.10 Cannabis abuse, uncomplicated; Z88.8 Allergy status to other drugs, medicaments and biological substances; Z88.0 Allergy status to penicillin
CPT/HCPCS: 99283